=== PATIENT | female | born 1950 | race Caucasian/White ===

== ENCOUNTER 2018-03-25 12:44 | Day surgery (SDC) | payer MEDICARE, OTHER ==
[2018-03-25] MEDS ORDERED: LIDOCAINE HCL 1% AMPUL 5 ML IJ ONE (12:45)
[2018-03-25] MEDS ORDERED: Marcaine 0.5% SDV 10 ML IJ ONE (12:45)
[2018-03-25] MEDS ORDERED: DIPRIVAN 200 MG/20 ML IV ONE (12:45)
[2018-03-25] MEDS ORDERED: Lactated Ringers 1,000 ML IV ONE (14:16)
--- NOTE | 2018-03-25 15:40 | XRAY ---
Indication: Left L3-L4 MBB. Intraoperative fluoroscopy was provided for 38 seconds. 2 digital spot images submitted for interpretation demonstrates posterior spinal needle tips projecting over the expected course of the left L3 and L4 nerve roots. Correlate with intraoperative findings/report.
--- NOTE | 2018-03-25 17:11 | XRAY ---
38 seconds fluoroscopy time in surgery for left L3-4 MBB.
--- NOTE | 2018-03-26 11:22 | OP ---
DATE OF PROCEDURE: 03/25/2018 1405 SURGEON: Frances Bartlett D.O. PREOPERATIVE DIAGNOSIS: Degenerative lumbar spine disease, spondylosis, low back pain. POSTOPERATIVE DIAGNOSIS: Degenerative lumbar spine disease, spondylosis, low back pain. PROCEDURE PERFORMED: Left L4, L3 medial branch block under fluoroscopic guidance. DESCRIPTION OF THE PROCEDURE: The patient was taken to the operating room and placed in the prone position on the table. Skin at the injection site was prepped and draped in sterile fashion. Under fluoroscopy, bony anatomy of the targeted injection site was visualized. Induction agent was given as per anesthesia while vital signs were monitored. Local anesthetic agent of 0.5 cc of 1% lidocaine preservative free was introduced to anesthetize the skin and the subcutaneous tissue through the injection site. Under fluoroscopic guidance, a #20 gauge standard spinal needle was advanced into the target medial branch through the oblique approach. The preservative free 0.5 cc of 1% lidocaine and 0.5 cc of 0.25%-0.5% Marcaine were injected into each of the targeted medial branch nerve. After the needle was being removed, the skin was cleansed with alcohol and then a bandage was applied. No complications or adverse consequences were observed. The patient was returned to the holding area until stabilized before discharge to home. Preoperative pain level is 10 out of 10 and postoperative pain level is 0 out of 10. The patient will be followed up within ten days after the injection for re-evaluation.
== END 2018-03-25 14:50 | disposition home or self-care (01) ==
LOC: SDC-PAIN 12:44
PROVIDERS: ATTEND Internal Medicine
DX: M54.5 Low back pain (principal); M62.838 Other muscle spasm; M46.96 Unspecified inflammatory spondylopathy, lumbar region; M51.36 Other intervertebral disc degeneration, lumbar region; M47.817 Spondylosis without myelopathy or radiculopathy, lumbosacral region; Z79.891 Long term (current) use of opiate analgesic
CPT/HCPCS: 64493; 64494; 72020; 77003; 82962; J2704

== ENCOUNTER 2018-04-22 09:24 | Day surgery (SDC) | payer MEDICARE, OTHER ==
[2018-04-22] MEDS ORDERED: DIPRIVAN 200 MG/20 ML IV ONE (09:25)
[2018-04-22] MEDS ORDERED: Marcaine Mpf 0.5% Vial 30 Ml IJ ONE (09:25)
[2018-04-22] MEDS ORDERED: XYLOCAINE-MPF 1% 5ML SDV IJ ONE (09:25)
[2018-04-22] MEDS ORDERED: Lactated Ringers 1,000 ML IV ONE (11:54)
--- NOTE | 2018-04-22 18:34 | XRAY ---
Exam: Single view spine from 04/22/2018. Comparison: Single view spine from 03/25/2018. Indication: Left L4-L5 MBB Findings: 25 seconds of intraoperative fluoroscopy time using the C-arm was utilized. 3 PA images were obtained. A needle tip is seen projected over the upper aspect of the left L5 pedicle as well as the upper aspect of the left L4 pedicle. There is a suggestion of a slight rotary component of the lower lumbar spine toward the right representing no change. Please correlate with intraoperative findings/report.
--- NOTE | 2018-04-23 08:15 | XRAY ---
25 seconds fluoroscopy time in surgery for left L4-5 MBB.
--- NOTE | 2018-04-23 08:52 | OP ---
AMENDED REPORT: DATE OF PROCEDURE: 04/22/2018 1221 SURGEON: Frances Bartlett D.O. PREOPERATIVE DIAGNOSIS: Degenerative lumbar spine disease, spondylosis, low back pain. POSTOPERATIVE DIAGNOSIS: Degenerative lumbar spine disease, spondylosis, low back pain. PROCEDURE PERFORMED: Left L4-L3 medial branch block under fluoroscopic guidance. DESCRIPTION OF THE PROCEDURE: The patient was taken to the operating room and placed in the prone position on the table. Skin at the injection site was prepped and draped in sterile fashion. Under fluoroscopy, bony anatomy of the targeted injection site was visualized. Induction agent was given as per anesthesia while vital signs were monitored. The medication used for this procedure is 2 cc preservative-free 0.5% Marcaine. Local anesthetic agent used 3 cc of 1% lidocaine preservative-free. Under fluoroscopic guidance, a #20 gauge standard spinal needle was advanced into the target medial branch through the oblique approach. After the needle was being removed, the skin was cleansed with alcohol and then a bandage was applied. No complications or adverse consequences were observed. The patient was returned to the holding area until stabilized before discharge to home. Preoperative pain level is 10 out of 10 and the postoperative pain level is 0 out of 10. The patient will be followed up within ten days after the injection for re-evaluation.
== END 2018-04-22 12:55 | disposition home or self-care (01) ==
LOC: SDC-PAIN 09:24
PROVIDERS: ATTEND Internal Medicine
DX: M54.5 Low back pain (principal); M62.838 Other muscle spasm; M46.96 Unspecified inflammatory spondylopathy, lumbar region; M51.36 Other intervertebral disc degeneration, lumbar region; M47.817 Spondylosis without myelopathy or radiculopathy, lumbosacral region; Z79.891 Long term (current) use of opiate analgesic
CPT/HCPCS: 64493; 64494; 72020; 77003; 82962; J2704

== ENCOUNTER 2018-11-04 09:07 | Day surgery (SDC) | payer MEDICARE, OTHER ==
[2018-11-04] MEDS ORDERED: DIPRIVAN 200 MG/20 ML IV ONE (09:08)
[2018-11-04] MEDS ORDERED: Depo-Medrol 40 MG/ML IM ONE (09:08)
[2018-11-04] MEDS ORDERED: Marcaine 0.5% SDV 10 ML IJ ONE (09:08)
--- NOTE | 2018-11-04 11:02 | XRAY ---
10 seconds fluoroscopy time in surgery for left SI joint injection.
--- NOTE | 2018-11-04 11:02 | XRAY ---
9 seconds fluoroscopy time in surgery for left hip injection.
[2018-11-04] MEDS ORDERED: Lactated Ringers 1,000 ML IV ONE (14:44)
--- NOTE | 2018-11-06 08:21 | XRAY ---
Indication: Left SI joint injection. Intraoperative fluoroscopy was provided for 10 seconds. 2 digital spot images submitted for interpretation demonstrates a single posterior spinal needle tip projecting over the inferior left SI joint. Correlate with intraoperative findings/report.
--- NOTE | 2018-11-06 08:22 | XRAY ---
Indication: Left hip injection. Intraoperative fluoroscopy was for approximately 10 seconds. Single PA digital spot image submitted for interpretation demonstrates single needle tip projecting over the lateral femur neck. Small amount of contrast injected for needle tip placement. Correlate with intraoperative findings/report.
== END 2018-11-04 10:45 | disposition home or self-care (01) ==
LOC: SDC-PAIN 09:07
PROVIDERS: ATTEND Psychiatry & Neurology Pain Medicine
DX: M54.5 Low back pain (principal); E11.9 Type 2 diabetes mellitus without complications
CPT/HCPCS: 01992; 20610; 72020; 73501; 76000; 77002; 82962; G0260; 27096; J1030; J2704

== ENCOUNTER 2019-04-28 07:29 | Day surgery (SDC) | payer MEDICARE, OTHER ==
[2019-04-28] MEDS ORDERED: DIPRIVAN 200 MG/20 ML IV ONE (07:30)
[2019-04-28] MEDS ORDERED: Ketamine HCl 50 MG/ML IV ONE (07:30)
[2019-04-28] MEDS ORDERED: Xylocaine-Mpf 2% 5 Ml Vial IJ ONE (07:30)
[2019-04-28] MEDS ORDERED: Depo-Medrol 40 MG/ML IM ONE (07:30)
--- NOTE | 2019-04-28 10:07 | XRAY ---
Indication: Bilateral L4-S1 MBB. Intraoperative fluoroscopy was provided for 8 seconds. Single digital spot image submitted for interpretation demonstrates posterior needle tips projecting over the expected course of the left and right L4-S1 nerve roots. Correlate with intraoperative findings/report.
--- NOTE | 2019-04-28 10:09 | XRAY ---
8 seconds fluoroscopy time in surgery for bilateral L4-S1 MBB.
[2019-04-28] MEDS ORDERED: Lactated Ringers 1,000 ML IV ONE (13:29)
== END 2019-04-28 09:45 | disposition home or self-care (01) ==
LOC: SDC-PAIN 07:29
PROVIDERS: ATTEND Psychiatry & Neurology Pain Medicine
DX: M47.816 Spondylosis without myelopathy or radiculopathy, lumbar region (principal); E11.9 Type 2 diabetes mellitus without complications; I10 Essential (primary) hypertension; E03.9 Hypothyroidism, unspecified; E78.00 Pure hypercholesterolemia, unspecified
CPT/HCPCS: 64493; 64494; 72020; 77002; 82962; J1030; J2704

== ENCOUNTER 2019-06-09 07:42 | Day surgery (SDC) | payer MEDICARE, OTHER ==
[2019-06-09] MEDS ORDERED: Depo-Medrol 40 MG/ML IM ONE (07:43)
[2019-06-09] MEDS ORDERED: Marcaine 0.5% SDV 10 ML IJ ONE (07:43)
[2019-06-09] MEDS ORDERED: DIPRIVAN 200 MG/20 ML IV ONE (08:23)
[2019-06-09] MEDS ORDERED: Ketamine HCl 50 MG/ML ONE (08:27)
--- NOTE | 2019-06-09 11:35 | XRAY ---
8 seconds fluoroscopy time in surgery for bilateral L4-S1 MBB.
[2019-06-09] MEDS ORDERED: Lactated Ringers 1,000 ML IV ONE (13:10)
== END 2019-06-09 09:45 | disposition home or self-care (01) ==
LOC: SDC-PAIN 07:42
PROVIDERS: ATTEND Psychiatry & Neurology Pain Medicine
DX: M47.816 Spondylosis without myelopathy or radiculopathy, lumbar region (principal); E11.9 Type 2 diabetes mellitus without complications
CPT/HCPCS: 64493; 64494; 72020; 77002; 82962; J1030; J2704

== ENCOUNTER 2019-09-27 05:37 | Day surgery (SDC) | payer MEDICARE, OTHER ==
[2019-09-27] MEDS ORDERED: Lactated Ringers 1,000 ML IV ONE (06:09)
[2019-09-27] MEDS ORDERED: Lactated Ringers 1,000 ML IV SCH (06:30)
[2019-09-27] MEDS ORDERED: DIPRIVAN 200 MG/20 ML IV ONE ×2 (07:27→07:46)
[2019-09-27] MEDS ORDERED: Ketamine HCl 50 MG/ML ONE (07:29)
[2019-09-27 09:12] VITALS: BP 141/80; PULSE 66; O2SAT 98
--- NOTE | 2019-09-27 11:09 | OP ---
SURGERY DATE/TIME: 09/27/2019729 PREOPERATIVE DIAGNOSIS: History of colon polyps. POSTOPERATIVE DIAGNOSIS: A 2.5 x 3.5 cm sessile polyp in the ascending colon and sigmoid diverticulosis. PROCEDURE: Colonoscopy with cold forceps biopsy. SURGEON: Dr. Fletcher. ANESTHESIA: MAC. Medications given by anesthesia department. HISTORY: The patient is a 69 year-old white female who reports she had polyps removed in the last three to four years. The patient now represents for surveillance examination. She was appraised of the risks of the procedure once again of perforation, phlebitis, untoward reaction to medication, bleeding and missed lesions. The patient verbalized her understanding and desired to have the procedure performed. DESCRIPTION OF PROCEDURE: The patient was given the medications by the anesthesia department. She had continuous pulse oximetry, ECG monitoring, intermittent blood pressure monitoring and tidal CO2 monitoring during the examination. She was placed in the left lateral decubitus position. A digital rectal examination was performed and revealed normal anal sphincter tone and no masses. The flexible Olympus pediatric colonoscope was used to intubate the rectum. A view of the colon was developed sequentially to the cecum. Upon insertion and withdrawal was noted sigmoid diverticulosis and a sessile polyp measuring approximately 2.5 x 3.5 cm occupying the area just distal to the ileocecal valve this is biopsied using cold biopsy technique to confirm adenomatous change. With careful inspection on withdrawal no other mucosal lesions were encountered, the scope was removed from the patient who tolerated the procedure well and was sent back to OP recovery in good condition. The prep was noted to be fair. Large amounts of liquid stool were present and occasional stool that was more solid was present.
== END 2019-09-27 09:00 | disposition home or self-care (01) ==
LOC: SDC 05:37
PROVIDERS: ATTEND Family Medicine
DX: Z12.11 Encounter for screening for malignant neoplasm of colon (principal); D12.2 Benign neoplasm of ascending colon; K57.30 Diverticulosis of large intestine without perforation or abscess without bleeding; Z86.010 Personal history of colon polyps; E11.9 Type 2 diabetes mellitus without complications; I10 Essential (primary) hypertension
CPT/HCPCS: 82962; 88305; J2704

== ENCOUNTER 2020-07-12 09:36 | Day surgery (SDC) | payer MEDICARE, OTHER ==
[2020-07-12] MEDS ORDERED: Depo-Medrol 40 MG/ML IM ONE (09:37)
[2020-07-12] MEDS ORDERED: BUPIVACAINE 0.5% VIAL IJ ONE (09:37)
[2020-07-12] MEDS ORDERED: DIPRIVAN 200 MG/20 ML IV ONE (11:23)
[2020-07-12] MEDS ORDERED: Ketamine HCl 50 MG/ML ONE (11:23)
--- NOTE | 2020-07-12 14:12 | XRAY ---
Indication: Bilateral SI joint injection. Intraoperative fluoroscopy was provided for 16 seconds. 4 digital spot images submitted for interpretation demonstrates posterior needle tip projecting over the inferior left and right SI joint. Correlate with intraoperative findings/report.
[2020-07-12] MEDS ORDERED: Lactated Ringers 1,000 ML IV ONE (14:25)
--- NOTE | 2020-07-12 15:02 | XRAY ---
16 seconds fluoroscopy time in surgery for bilateral SI joint injections.
== END 2020-07-12 11:25 | disposition home or self-care (01) ==
LOC: SDC-PAIN 09:36
PROVIDERS: ATTEND Psychiatry & Neurology Pain Medicine
DX: M46.1 Sacroiliitis, not elsewhere classified (principal); I10 Essential (primary) hypertension; E03.9 Hypothyroidism, unspecified; E11.9 Type 2 diabetes mellitus without complications; E78.00 Pure hypercholesterolemia, unspecified; Z79.899 Other long term (current) drug therapy
CPT/HCPCS: 27096; 72202; 77002; 82962; 99100; J1030; J2704; G0260

== ENCOUNTER 2020-08-02 09:20 | Day surgery (SDC) | payer MEDICARE, OTHER ==
[~2020-08-02 09:20] MED LIST: DIPRIVAN 200 MG/20 ML IV ONE; Ketamine HCl 50 MG/ML ONE
[2020-08-02] MEDS ORDERED: Xylocaine 1% Vial 30 ML PF IJ ONE (09:21)
[2020-08-02] MEDS ORDERED: Depo-Medrol 40 MG/ML IM ONE (09:21)
[2020-08-02] MEDS ORDERED: BUPIVACAINE 0.5% VIAL IJ ONE (09:21)
[2020-08-02] MEDS ORDERED: Decadron 4 MG INJ IV ONE (09:21)
--- NOTE | 2020-08-02 11:49 | XRAY ---
Indication: Left SI joint and piriformis injection. Intraoperative fluoroscopy was provided for 20 seconds. 3 digital spot images submitted for interpretation demonstrates posterior needle tip projecting over the inferior left SI joint. Second needle tip projects over the expected left piriformis muscle with small amount of contrast injected for needle tip placement. Correlate with intraoperative findings/report.
--- NOTE | 2020-08-02 12:58 | XRAY ---
20 seconds fluoroscopy time in surgery for left SI joint and piriformis injections.
[2020-08-02] MEDS ORDERED: Lactated Ringers 1,000 ML IV ONE (15:10)
== END 2020-08-02 11:03 | disposition home or self-care (01) ==
LOC: SDC-PAIN 09:20
PROVIDERS: ATTEND Psychiatry & Neurology Pain Medicine
DX: M79.18 Myalgia, other site (principal); M46.1 Sacroiliitis, not elsewhere classified; E11.9 Type 2 diabetes mellitus without complications; I10 Essential (primary) hypertension; E03.9 Hypothyroidism, unspecified; Z79.899 Other long term (current) drug therapy
CPT/HCPCS: 20552; 72202; 77002; 82962; G0260; 27096; 36415; 99100; J1030; J1100; J2001; J2704; Q9966

== ENCOUNTER 2023-06-11 08:45 | Day surgery (SDC) | payer MEDICARE, OTHER ==
[2023-06-11] MEDS ORDERED: Depo-Medrol 40 MG/ML IM ONE (08:46)
[2023-06-11] MEDS ORDERED: Decadron 4 MG INJ IV ONE (08:46)
[2023-06-11] MEDS ORDERED: BUPIVACAINE 0.5% VIAL IJ ONE (08:46)
[2023-06-11] MEDS ORDERED: LIDOCAINE HCL 1% 50 MG/5 ML VL PF IJ ONE (08:46)
[2023-06-11] MEDS ORDERED: DIPRIVAN 200 MG/20 ML IV ONE (09:37)
--- NOTE | 2023-06-11 10:18 | XRAY ---
Indication: Left SI joint and left piriformis injection. Intraoperative fluoroscopy provided for 22 seconds. 3 digital spot image submitted for interpretation demonstrates posterior needle tip projecting over the expected left SI joint. Second needle tip projects over the left piriformis with small amount of contrast injected for needle tip placement. Correlate with intraoperative findings/report.
--- NOTE | 2023-06-11 10:55 | XRAY ---
22 seconds of fluoroscopy was used in surgery for a left sacroiliac joint and left piriformis injection.
[2023-06-11] MEDS ORDERED: Lactated Ringers 1,000 ML IV ONE (13:34)
== END 2023-06-11 10:06 | disposition home or self-care (01) ==
LOC: SDC-PAIN 08:45
PROVIDERS: ATTEND Psychiatry & Neurology Pain Medicine
DX: M46.1 Sacroiliitis, not elsewhere classified (principal); M79.18 Myalgia, other site; E11.9 Type 2 diabetes mellitus without complications; Z79.899 Other long term (current) drug therapy
CPT/HCPCS: 01992; 20552; 27096; 72202; 77002; 82947; 99100; G0260; J1030; J1100; J2001; J2704; Q9966

== ENCOUNTER 2024-02-10 10:02 | Day surgery (SDC) | payer MEDICARE, OTHER ==
[~2024-02-10 10:02] MED LIST changes: +BETADINE 5% OPHTHALMIC 30 ML OP ONE; -DIPRIVAN 200 MG/20 ML IV ONE; -Ketamine HCl 50 MG/ML ONE; +NON-FORMULARY ITEM OP ONE; +cefUROXime sodium 0.005 GM in Sodium Chloride Flush 30 ML*** 0.5 ML IJ ONE
[2024-02-10] MEDS ORDERED: Epinephrine Preservative Free 1 MG/ML IJ ONE (10:03)
[2024-02-10] MEDS ORDERED: Lactated Ringers 1,000 ML IV ONE (11:35)
[2024-02-10] MEDS: Lactated Ringers 1,000 ML IV SCH (11:37)
[2024-02-10] MEDS: TETRACAINE 0.5% STERI-UNIT SOL OP ONE ×2 (11:53→12:22)
[2024-02-10] MEDS: Ak-Dilate OPHTHALMIC*** 1.065 ML, Cyclogyl 1% OPHTH SOL 1.065 ML, GATIFLOXACIN 0.5% OPH... OP ONE (11:55)
[2024-02-10] MEDS ORDERED: Zofran 4 MG/2 ML VIAL IV PRN (12:30)
[2024-02-10] MEDS ORDERED: DIPRIVAN 200 MG/20 ML IV ONE (13:58)
[2024-02-10 14:29] VITALS: RESP 18; TEMP 97.9
[2024-02-10] MEDS: ACETAZOLAMIDE 250 MG TABLET PO ONE (14:30)
[2024-02-10 14:42] VITALS: BP 135/76; PULSE 62; O2SAT 98
== END 2024-02-10 14:48 | disposition home or self-care (01) ==
LOC: SDC 10:02
PROVIDERS: ATTEND Ophthalmology
DX: H25.811 Combined forms of age-related cataract, right eye (principal); E11.9 Type 2 diabetes mellitus without complications; I10 Essential (primary) hypertension
CPT/HCPCS: 82947; 93005; C1780; J0171; J2704; A9270-GY